=== PATIENT | male | born 1990 | race Two or more races ===

== ENCOUNTER 2021-04-07 12:52 | Emergency (ER) | payer MEDICAID, OTHER ==
[~2021-04-07] VITALS: Ht 180.3 cm; Wt 191.0 kg
[2021-04-07] MEDS ORDERED: TOPUD MT (13:44)
[2021-04-07] MEDS ORDERED: IBUP-2328 MT (13:44)
[2021-04-07] MEDS ORDERED: AMOX-494 MT (13:44)
[2021-04-07] MEDS ORDERED: IBUPROFEN 400MG TABLET PO ONE (13:45)
[2021-04-07] MEDS ORDERED: ACETAMINOPHEN 325MG TABLET PO ONE (13:45)
[2021-04-07 14:07] VITALS: BP 138/68
== END 2021-04-07 14:18 | disposition home or self-care (01) ==
LOC: ER 12:52
DX: H66.93 Otitis media, unspecified, bilateral (principal); Z79.899 Other long term (current) drug therapy; Z98.890 Other specified postprocedural states
CPT/HCPCS: 99283